=== PATIENT | female | born 1985 ===

== ENCOUNTER 2017-12-17 15:00 | Inpatient (IN) | payer OTHER ==
[~2017-12-17] VITALS: Ht 165.1 cm; Wt 4.5 kg
[2017-12-30] MEDS ORDERED: FE C TABLET1 EACH PO (09:03)
[2017-12-30] MEDS ORDERED: PRENATAL 19 TA1 EAC1 PO (09:03)
[2017-12-30] MEDS ORDERED: AMPICILLIN TRI500 MG PO (09:04)
== END 2018-01-02 15:42 | disposition home or self-care (01) | DRG 766 ==
LOC: LDR 12-29 15:00 → OB/GYN 12-30 06:26
PROVIDERS: Obstetrics & Gynecology
PROC: 4A033R1 Measurement of Arterial Saturation, Peripheral, Percutaneous Approach (ICD-10-PCS; 2017-12-30)
PROC: 0UB10ZZ Excision of Left Ovary, Open Approach (ICD-10-PCS; 2017-12-30)
PROC: 10D00Z1 Extraction of Products of Conception, Low, Open Approach (ICD-10-PCS; principal; 2017-12-30 18:00)
PROC: 4A1HXCZ Monitoring of Products of Conception, Cardiac Rate, External Approach (ICD-10-PCS; 2017-12-30 18:00)
DX: O62.1 Secondary uterine inertia (principal); O33.8 Maternal care for disproportion of other origin; Z3A.40 40 weeks gestation of pregnancy; Z37.0 Single live birth; O34.83 Maternal care for other abnormalities of pelvic organs, third trimester; N83.202 Unspecified ovarian cyst, left side

== ENCOUNTER 2022-08-04 09:15 | Inpatient (IN) | payer OTHER ==
[~2022-08-04] VITALS: Ht 162.6 cm; Wt 75.3 kg
[~2022-08-04 09:15] MED LIST: AMPICILLIN TRI500 MG PO; FE C TABLET1 EACH PO; PRENATAL 19 TA1 EAC1 PO
== END 2022-08-09 10:34 | disposition home or self-care (01) | DRG 743 ==
LOC: SURH 08-06 09:15 → O/R 08-06 10:29 → SURH 08-06 12:00 → OB/GYN 08-06 17:43
PROVIDERS: ADMIT Obstetrics & Gynecology; ATTEND Obstetrics & Gynecology
PROC: 0UN10ZZ Release Left Ovary, Open Approach (ICD-10-PCS; 2022-08-06)
PROC: 0UN90ZZ Release Uterus, Open Approach (ICD-10-PCS; 2022-08-06)
PROC: 0UB00ZZ Excision of Right Ovary, Open Approach (ICD-10-PCS; principal; 2022-08-06 12:00)
DX: D27.0 Benign neoplasm of right ovary (principal); Z20.822 Contact with and (suspected) exposure to COVID-19; N73.6 Female pelvic peritoneal adhesions (postinfective)